=== PATIENT | female | born 1965 | race Caucasian/White ===

== ENCOUNTER 2018-03-22 15:40 | Emergency (ER) | payer OTHER ==
[~2018-03-22] VITALS: Ht 170.2 cm; Wt 54.9 kg
[2018-03-22] MEDS ORDERED: SINGULAIR 4MG4 MG (16:02)
[2018-03-22] MEDS ORDERED: LEVOXYL25 MCG (16:02)
[2018-03-22] MEDS ORDERED: AMLODIPINE BESY10 MG (16:02)
[2018-03-22] MEDS ORDERED: ALLERCLEAR10 M1 (16:03)
[2018-03-22] MEDS ORDERED: QVAR8.7 G1 (16:04)
[2018-03-22] MEDS ORDERED: SYMBICORT 16010.2 GM (16:04)
== END 2018-03-22 19:32 | disposition home or self-care (01) ==
LOC: ER 15:40
DX: R07.89 Other chest pain (principal); F06.4 Anxiety disorder due to known physiological condition

== ENCOUNTER 2018-05-13 00:21 | Emergency (ER) | payer OTHER ==
[~2018-05-13] VITALS: Ht 170.2 cm; Wt 68.0 kg
[~2018-05-13 00:21] MED LIST: ALLERCLEAR10 M1; AMLODIPINE BESY10 MG; LEVOXYL25 MCG; QVAR8.7 G1; SINGULAIR 4MG4 MG; SYMBICORT 16010.2 GM
== END 2018-05-13 04:00 ==
LOC: ER 00:21
DX: R00.2 Palpitations (principal)

== ENCOUNTER → 2019-05-25 | Emergency (ER) | payer OTHER ==
[~2019-05-25] VITALS: Ht 167.6 cm; Wt 55.8 kg
[~2019-05-25] MED LIST changes: +ALBUTEROL2.5 MG/3 M IH; +MEDROLPACK PO; +PROMETH-CODEIN 65 ML PO; +TESSALON PERLE100 M1 PO; +XOPENEX0.63 MG/3 IH; +ZYNCOF 20-400120 ML PO
== END ==
LOC: ER 23:12
DX: J45.909 Unspecified asthma, uncomplicated (principal)

== ENCOUNTER 2019-05-27 00:56 | Emergency (ER) | payer OTHER ==
[~2019-05-27] VITALS: Ht 167.6 cm; Wt 55.8 kg
[~2019-05-27 00:56] MED LIST changes: -MEDROLPACK PO; -PROMETH-CODEIN 65 ML PO; -TESSALON PERLE100 M1 PO
[2019-05-27] MEDS ORDERED: PROMETH-CODEIN 65 ML PO (02:49)
[2019-05-27] MEDS ORDERED: TESSALON PERLE100 M1 PO (02:49)
[2019-05-27] MEDS ORDERED: MEDROLPACK PO (02:49)
== END 2019-05-27 03:56 | disposition home or self-care (01) ==
LOC: ER 00:56
DX: J45.909 Unspecified asthma, uncomplicated (principal)

== ENCOUNTER 2019-06-01 09:43 | Emergency (ER) | payer OTHER ==
[~2019-06-01] VITALS: Ht 167.6 cm; Wt 54.9 kg
[~2019-06-01 09:43] MED LIST changes: +MEDROLPACK PO; +PROMETH-CODEIN 65 ML PO; +TESSALON PERLE100 M1 PO
== END 2019-06-01 12:03 | disposition home or self-care (01) ==
LOC: ER 09:43
DX: R19.7 Diarrhea, unspecified (principal); K62.5 Hemorrhage of anus and rectum

== ENCOUNTER → 2020-10-16 | Outpatient (CLI) | payer OTHER | END | disposition home or self-care (01) | LOC: RAD 10:08 | PROVIDERS: ATTEND Internal Medicine Pulmonary Disease | DX: J45.40 Moderate persistent asthma, uncomplicated (principal) ==

== ENCOUNTER 2021-08-31 21:17 | Emergency (ER) | payer OTHER ==
[~2021-08-31] VITALS: Ht 172.7 cm; Wt 63.5 kg
[2021-08-31] MEDS ORDERED: COZAAR50 MG PO (21:55)
== END 2021-08-31 22:13 | disposition home or self-care (01) ==
LOC: ER 21:17
DX: I10 Essential (primary) hypertension (principal); Z88.0 Allergy status to penicillin; Z88.8 Allergy status to other drugs, medicaments and biological substances

== ENCOUNTER 2021-09-03 22:45 | Emergency (ER) | payer OTHER ==
[~2021-09-03] VITALS: Ht 172.7 cm; Wt 63.5 kg
[~2021-09-03 22:45] MED LIST changes: +COZAAR50 MG PO
[2021-09-04] MEDS ORDERED: PEPCID20 MG PO (05:51)
[2021-09-04] MEDS ORDERED: DICY20TA PO (05:51)
== END 2021-09-04 05:57 | disposition home or self-care (01) ==
LOC: ER 22:45
DX: I10 Essential (primary) hypertension (principal); R10.9 Unspecified abdominal pain

== ENCOUNTER 2021-09-09 16:51 | Emergency (ER) | payer OTHER ==
[~2021-09-09] VITALS: Ht 172.7 cm; Wt 63.5 kg
[~2021-09-09 16:51] MED LIST changes: +DICY20TA PO; +PEPCID20 MG PO
[2021-09-09] MEDS ORDERED: SIMVASTATIN10 MG PO (17:33)
[2021-09-09] MEDS ORDERED: MACROBID 100 M100 MG PO (19:46)
== END 2021-09-09 20:38 | disposition home or self-care (01) ==
LOC: ER 16:51
DX: R30.0 Dysuria (principal); Z88.0 Allergy status to penicillin; Z88.2 Allergy status to sulfonamides

== ENCOUNTER → 2021-09-11 | Emergency (ER) | payer OTHER ==
[~2021-09-11] VITALS: Ht 172.7 cm; Wt 63.5 kg
[~2021-09-11] MED LIST changes: +MACROBID 100 M100 MG PO; +SIMVASTATIN10 MG PO
== END | disposition home or self-care (01) ==
LOC: ER 18:57
DX: I10 Essential (primary) hypertension (principal); Z88.0 Allergy status to penicillin; Z88.2 Allergy status to sulfonamides

== ENCOUNTER 2023-03-03 09:15 | Outpatient (CLI) | payer OTHER | END 2023-03-03 09:24 | disposition home or self-care (01) | LOC: RAD 09:15 | DX: R05.8 Other specified cough (principal) ==

== ENCOUNTER 2023-05-04 12:07 | Emergency (ER) | payer OTHER ==
[~2023-05-04] VITALS: Ht 167.6 cm; Wt 57.2 kg
[2023-05-04 16:21] LABS: HEMATOCRIT 40.1 % (36.0-45.00); HEMOGLOBIN 14.1 g/dL (12.0-15.00); MEAN CELL VOLUME 84.7 fL (80.00-100.00); MEAN CORPUSCULAR HEMOGLOBIN 29.7 pg (27.00-32.0); MEAN CORPUSCULAR HGB CONC 35.1 g/dl (32.0-36.0); PLATELET COUNT 238 K/uL (150-450); RED BLOOD COUNT 4.73 M/uL (4.00-6.00); RED CELL DISTRIBUTION WIDTH 13.9 % (11.5-14.5)
[2023-05-04] MEDS ORDERED: ATROVENT HFA12.9 GM IH ×2 (17:34→17:36)
[2023-05-04] MEDS ORDERED: ZITHROMAX500 MG PO (17:35)
[2023-05-04] MEDS ORDERED: MEDROLPACK PO (17:35)
[2023-05-04] MEDS ORDERED: XOPENEX CO1.25 MG/0. IH (17:35)
[2023-05-04] MEDS ORDERED: TUSSIN DM LIQU118 ML PO (17:36)
== END 2023-05-04 17:43 | disposition home or self-care (01) ==
LOC: ER 12:07
PROVIDERS: Nurse Practitioner Family
DX: J06.9 Acute upper respiratory infection, unspecified (principal); J45.909 Unspecified asthma, uncomplicated; Z20.822 Contact with and (suspected) exposure to COVID-19; Z88.0 Allergy status to penicillin; Z88.2 Allergy status to sulfonamides

== ENCOUNTER 2023-05-06 16:26 | Emergency (ER) | payer OTHER ==
[~2023-05-06] VITALS: Ht 167.6 cm; Wt 56.2 kg
[~2023-05-06 16:26] MED LIST changes: +ATROVENT HFA12.9 GM IH; +TUSSIN DM LIQU118 ML PO; +XOPENEX CO1.25 MG/0. IH; +ZITHROMAX500 MG PO
[2023-05-06] MEDS ORDERED: LEVOTHYROXINE13 MCG PO (16:40)
[2023-05-06 18:56] LABS: ABG PH 7.519 (7.35-7.45); ABG PO2 96.6 mmHg (80-100); ABG pCO2 23.6 mmHg (35-45); BICARBONATE 18.8 mmol/l (23-25); SaO2 98.2 %; Tco2 19.6 mmol/l; allen test SATISFACTORY; o2 21 %; puncture site RADIAL LEFT
[2023-05-06 19:22] LABS: HEMATOCRIT 42.1 % (36.0-45.00); HEMOGLOBIN 14.6 g/dL (12.0-15.00); MEAN CELL VOLUME 84.1 fL (80.00-100.00); MEAN CORPUSCULAR HEMOGLOBIN 29.2 pg (27.00-32.0); MEAN CORPUSCULAR HGB CONC 34.7 g/dl (32.0-36.0); PLATELET COUNT 290 K/uL (150-450); RED BLOOD COUNT 5.01 M/uL (4.00-6.00); RED CELL DISTRIBUTION WIDTH 14.2 % (11.5-14.5)
== END 2023-05-06 21:10 | disposition home or self-care (01) ==
LOC: ER 16:26
PROVIDERS: General Practice
DX: J45.909 Unspecified asthma, uncomplicated (principal); Z88.0 Allergy status to penicillin; Z88.2 Allergy status to sulfonamides; Z20.822 Contact with and (suspected) exposure to COVID-19

== ENCOUNTER 2024-09-01 18:10 | Emergency (ER) | payer OTHER ==
[~2024-09-01] VITALS: Ht 167.6 cm; Wt 54.4 kg
[~2024-09-01 18:10] MED LIST changes: +LEVOTHYROXINE13 MCG PO
[2024-09-01 22:02] LABS: HEMOGLOBIN 15.5 g/dL (12.0-15.00); MEAN CELL VOLUME 86.3 fL (80.00-100.00); MEAN CORPUSCULAR HEMOGLOBIN 29.7 pg (27.00-32.0); MEAN CORPUSCULAR HGB CONC 34.4 g/dl (32.0-36.0); PLATELET COUNT 284 K/uL (150-450); RED BLOOD COUNT 5.21 M/uL (4.00-6.00); RED CELL DISTRIBUTION WIDTH 14.7 % (11.5-14.5)
[2024-09-01 22:23] LABS: ALBUMIN 4.1 gm/dL (3.4-5.0); BILIRUBIN TOTAL 0.88 mg/dL (0.3-1.2); CALCIUM 9.4 mg/dL (8.5-10.1); CREATININE SERUM 1.03 mg/dL (0.55-1.02); GFR 54.66; POTASSIUM 4.02 mEq/L (3.5-5.1); TOTAL PROTEIN 8.1 gm/dL (6.4-8.2)
[2024-09-01] MEDS ORDERED: LABETALOL HCL 20MG/4ML SYRINGE IV ONE (23:45)
[2024-09-01] MEDS ORDERED: LABETALOL HCL 100 MG/20 ML ML ONE (23:51)
== END 2024-09-02 00:30 | disposition home or self-care (01) ==
LOC: ER 18:12
PROVIDERS: Preventive Medicine Public Health & General Preventive Medicine
DX: I47.9 Paroxysmal tachycardia, unspecified (principal); J45.909 Unspecified asthma, uncomplicated; E03.8 Other specified hypothyroidism; Z88.2 Allergy status to sulfonamides; Z88.0 Allergy status to penicillin
CPT/HCPCS: 36415; 93005; 96365; 99283; J3490

== ENCOUNTER 2025-03-06 16:08 | Emergency (ER) | payer OTHER ==
[~2025-03-06] VITALS: Ht 172.7 cm; Wt 56.2 kg
[2025-03-06] MEDS ORDERED: ADVAIR HFA 115/12 GM IH (17:18)
[2025-03-06] MEDS ORDERED: KETOROLAC TROMETHAMINE 60 MG VIAL IM ONE ×2 (18:30→18:38)
[2025-03-06 19:05] LABS: BASO % 0.8 % (0.1-1.2); EOS # 0.43 (0.04-0.54); EOS % 6.0 % (0.7-7.0); LYMPH # 3.26 (1.18-3.74); LYMPH % 45.3 % (19.3-53.1); MEAN PLATELET VOLUME 9.20 fl (9.4-12.4); MONO # 0.49 (0.24-0.82); MONO % 6.8 % (4.7-12.5); NEUT # 2.94 (1.56-6.13); NEUT % 41.0 % (34.0-71.1); RED CELL DISTRIBUTION WIDTH 13.2 % (11.6-14.4)
[2025-03-06 19:46] LABS: ALT/SGPT 17.0 U/L (12-78); AST/SGOT 12.0 U/L (15-37); BILIRUBIN TOTAL 1.11 mg/dL (0.3-1.2); BUN CREA RATIO 21.0 (7.0-25.0); CREATININE SERUM 0.77 mg/dL (0.55-1.02); GFR 76.21; GLOBULINA 3.5 G/DL (2.4-3.5); GLUCOSE FASTING 95.0 mg/dL (65-100); OSMOLALITY SERUM 282.0 MOSM/KG (275-295)
[2025-03-06] MEDS ORDERED: NORFLEX100MG PO (21:31)
== END 2025-03-06 22:30 | disposition home or self-care (01) ==
LOC: ER 16:08
PROVIDERS: General Practice
DX: R10.11 Right upper quadrant pain (principal); Z88.0 Allergy status to penicillin; Z88.2 Allergy status to sulfonamides